=== PATIENT | male | born 1945 | race Caucasian/White ===

== ENCOUNTER 2016-12-12 12:35 | Emergency (ER) | payer MEDICARE, BC ==
[~2016-12-12] VITALS: Ht 177.8 cm; Wt 84.4 kg
[2016-12-12] MEDS ORDERED: LISINOPRIL (12:50)
[2016-12-12] MEDS ORDERED: CHOL100030 PO (12:50)
[2016-12-12] MEDS ORDERED: ASPI81TA31 PO (12:50)
--- NOTE | 2016-12-12 13:26 | NUR ---
Patient discharged to home in stable conditon. Written and verbal after care instructions given. Patient verbalizes understanding of instructions.pt walks in steady gait.
== END 2016-12-12 13:28 | disposition home or self-care (01) ==
LOC: ER 12:35
DX: M54.9 Dorsalgia, unspecified (principal); Z85.828 Personal history of other malignant neoplasm of skin; I10 Essential (primary) hypertension; Z88.0 Allergy status to penicillin; Z79.82 Long term (current) use of aspirin; Z95.0 Presence of cardiac pacemaker
CPT/HCPCS: 71010; 99283; A4663